=== PATIENT | female | born 1970 | race Caucasian/White ===

== ENCOUNTER 2017-09-12 12:17 | Emergency (ER) | payer SELFPAY ==
[~2017-09-12] VITALS: Ht 165.1 cm; Wt 71.2 kg
[~2017-09-12 12:17] MED LIST: ACET-819 PO; DCS100C PO; HYDR-3454 PO; IBP800T PO; TRAM50TA2 PO
--- NOTE | 2017-09-12 14:21 | ED GU-Female ---
General Chief Complaint: -Female Stated Complaint: EXCESSIVE VAG BLEEDING Nursing Triage Note: hAD PAP AND PELVIC LAST WEEK. sTARTING FRIDAY- HAS HAD INCREASED VAG BLEEDING, PASSING PEA SIZED CLOTS. Nursing Sepsis Screen: No Definite Risk Source: patient Exam Limitations: no limitations History of Present Illness Time seen by provider: 14:21 Initial Comments 47-year-old female patient presents to the emergency Department with reports of menorrhagia beginning Friday. States she is now passing "pea sized" clots. She does report a history of heavy periods, but worse on this occasion. Patient did have a pelvic/Pap smear last week. She is scheduled next week with her nurse practitioner at [facility] in [place] for follow-up results. Denies pain or fever. Previously was tested and told she was going through menopause. Did not have a period for approximately 4-6 months until Friday. Timing/Duration: other (Friday) Severity/Quality: other (Moderate to severe symptoms) Location: vaginal Activities at Onset: none Prior Genitourinary Problems: similar symptoms Sexual [place] History: less than 2 months ago, single partner Allergies and Home Medications Allergies Coded Allergies: Penicillins (Unverified Allergy, HIVES, 08/18/13) Home Medications Docusate Sodium 100 Mg Capsule, 100 MG PO BID, (Reported) Hydrocodone Bit/Acetaminophen 1 Each Tablet, 1-2 EACH PO Q6H PRN for PAIN, ( Reported) LAST DOSE AT 3:40 Constitutional: no symptoms reported Respiratory: no symptoms reported Cardiovascular: no symptoms reported Gastrointestinal: No abdominal pain, No constipation, No diarrhea, No loss of appetite, No melena, No nausea, No vomiting Genitourinary: see HPI, denies burning, discharge, denies dysuria, denies frequency, denies flank pain, denies hematuria, denies pain, other (Menorrhagia) Musculoskeletal: no symptoms reported Skin: no symptoms reported Psychiatric/Neurological: No Symptoms Reported Hematologic/Lymphatic: Denies Anemia, Denies Blood Clots, Denies Easy Bleeding , Denies Easy Bruising All Other Systemes Reviewed Negative Unless Noted: Yes (Negative excepted noted.) Past Aeulbbd-Gybahu-Kdcbfg Hx Patient Social History Alcohol Use: Denies Use Recreational Drug Use: No (SMOKE LESS THAN 1 PACK/DAY) Smoking Status: Current Everyday Smoker Type Used: Cigarettes 2nd Hand Smoke Exposure: No Recent Foreign Travel: No Contact w/Someone Who Travel: No Recent Infectious Disease Expo: No Recent Hopitalizations: No Physical Abuse: No Sexual Abuse: No Mistreated: No Fear: No Immunizations Up To Date Tetanus Booster (TDap): Less than 5yrs Seasonal Allergies Seasonal Allergies: No Surgeries History of Surgeries: Yes Surgeries: Gallbladder, Tubal Ligation Respiratory History of Respiratory Disorde: No Cardiovascular History of Cardiac Disorders: No Neurological History of Neurological Disord: No Reproductive System Hx : 3 Hx Para: 2 Hx Total # of Abortions (Spona: 1 () Hx Reproductive Disorders: Yes (History of menorrhagia) Sexually Transmitted Disease: No HIV/AIDS: No Female Reproductive Disorders: Menstrual Problems (h/o menorrhagia) [employer] History: Tubal Ligation Genitourinary History of Genitourinary Disor: No Gastrointestinal History of Gastrointestinal Di: No Musculoskeletal History of Musculoskeletal Dis: No Endocrine History of Endocrine Disorders: No Cancer History of Cancer: No Psychosocial History of Psychiatric Problem: No Suicide Risk Score: 0 Integumentary History of Skin or Integumenta: No Blood Transfusions History of Blood Disorders: No Reviewed Nursing Assessment Reviewed/Agree w Nursing PMH: Yes Family Medical History Significant Family History: No Pertinent Family Hx (denies female reproductive hx on mother side, but does not know father's side.) Physical Exam Vital Signs Vital Sign - Last 12Hours 09/12/17 13:47 Temp 98.1 Pulse 59 Resp 18 B/P (MAP) 135/72 (93) Pulse Ox 98 Capillary Refill : Less Than 3 Seconds General Appearance: WD/WN, no apparent distress HEENT: PERRL/EOMI, pharynx normal Neck: supple, normal inspection Cardiovascular: normal peripheral pulses, regular rate, rhythm, no edema, no murmur Respiratory: lungs clear, normal breath sounds, no respiratory distress, no accessory muscle use Gastrointestinal: normal bowel sounds, non tender, soft, no organomegaly Pelvic: normal external exam, normal adnexa, no cerv. motion tender, no masses , No lesions, vaginal bleeding (approximately 3-4 cc's of dark blood noted in the vagina without active bleeding.) Back: normal inspection, no CVA tenderness Extremities: no pedal edema, normal capillary refill Neurologic/Psychiatric: alert, normal mood/affect, oriented x 3 Skin: normal color, warm/dry Progress/Results/Core Measures Suspected Sepsis Recent Fever Within 48 Hours: No Infection Criteria Present: None New/Unexplained Altered Menta: No Sepsis Screen: No Definite Risk Sepsis Diagnosis: SIRS Temperature:98.1 Pulse: 59 Respiratory Rate: 18 Blood Pressure 135 /72 Mean: 93 Results/Orders Lab Results My Orders Vital Signs/I&O Capillary Refill : Less Than 3 Seconds Blood Pressure Mean: 93 Diagnostic Imaging Diagonstic Imaging: Ultrasound Plain Films/CT/US/NM/MRI: pelvis Comments Findings: The uterus measures 9.0 x 6.6 x 5.9 cm. The myometrium is normal in echogenicity without discrete mass. The endometrium is heterogeneous in echogenicity and mildly thickened measuring up to 1.4 cm. There is blood flow within the endometrium which is abnormal. The right ovary measures 3.3 x 3.3 x 2.6 cm. The left ovary measures 2.6 x 2.1 x 2.8 cm. Blood flow is seen in both ovaries by color Doppler imaging. In the right ovary there is a complex cyst with layering debris with the cyst measuring 2.0 x 2.0 cm. Anechoic follicle in the left ovary is present and less than 2 cm in size. No free pelvic fluid. Impression: 1. Abnormal heterogeneous appearance of the endometrium with debris present as well as vascularity within the endometrium. The debris may be secondary to menstruation, depending on patient's cycle. Endometrial neoplasm is thought less likely but cannot be excluded. Consider followup ultrasound in 6 weeks and/or gynecology consultation. Dictated on workstation # [id number] Reviewed: Reviewed by Me (radiology report reviewed by me) Departure Communication (Admissions) Progress Notes Patient seen and evaluated. All laboratory and diagnostic findings discussed with the patient. Plan for discharge to home with follow-up with [facility] next week as previously scheduled. All return precautions were discussed with the patient as described in the discharge instructions of this report. Patient verbalizes understanding and agrees with the treatment plan. Impression Impression: Primary Impression: Menorrhagia with irregular cycle Additional Impression: Abnormal pelvic ultrasound Disposition: HOME, SELF-CARE Condition: Improved Departure-Patient Inst. Decision time for Depature: 16:54 Referrals: [facility] (PCP) Primary Care Physician WENDY JOHNSON DENNIS G MD QUICK,STAR FLORES DO Patient Instructions: IRREGULAR VAGINAL BLEEDING Add. Discharge Instructions: All discharge instructions reviewed with patient and/or family. Voiced understanding. Tylenol extra strength [id number] as directed for abdominal cramping. Ibuprofen 800 mg by mouth every 8 hours as needed for pain or abdominal cramping. Follow-up next week with [facility] as previously scheduled for recheck and scheduling outpatient repeat ultrasound in 6 weeks. Return to the emergency department immediately for increased bleeding , fever, dizziness, shortness of air, or any other concerns. COOPER GARCIA Sep 12, 2017 14:21
[2017-09-12 14:25] LABS: BASOPHILS % (AUTO) 1 % (0-10); EOSINOPHILS # (AUTO) 0.4 10^3/uL (0.0-0.3); EOSINOPHILS % (AUTO) 5 % (0-10); HEMATOCRIT 40 % (35-52); HEMOGLOBIN 13.6 G/DL (11.5-16.0); LYMPHOCYTES # (AUTO) 3.2 X 10^3 (1.0-4.0); LYMPHOCYTES % (AUTO) 36 % (12-44); MEAN CORPUSCULAR HEMOGLOBIN 32 PG (25-34); MEAN CORPUSCULAR HGB CONC 34 G/DL (32-36); MEAN CORPUSCULAR VOLUME 94 FL (80-99); MEAN PLATELET VOLUME 9.5 FL (7.4-10.4); MONOCYTES # (AUTO) 0.6 X 10^3 (0.0-1.0); MONOCYTES % (AUTO) 6 % (0-12); NEUTROPHILS # (AUTO) 4.6 X 10^3 (1.8-7.8); NEUTROPHILS % (AUTO) 52 % (42-75); PLATELET COUNT 417 10^3/uL (130-400); RED BLOOD COUNT 4.23 10^6/uL (4.35-5.85); WHITE BLOOD COUNT 8.7 10^3/uL (4.3-11.0)
[2017-09-12 14:40] LABS: ALANINE AMINOTRANSFERASE 16 U/L (0-55); ALKALINE PHOSPHATASE 72 U/L (40-136); BILIRUBIN,TOTAL 0.5 MG/DL (0.1-1.0); BUN/CREATININE RATIO 8; CALCIUM 8.7 MG/DL (8.5-10.1); CARBON DIOXIDE 24 MMOL/L (21-32); CHLORIDE 107 MMOL/L (98-107); CREATININE SERUM 0.75 MG/DL (0.60-1.30); GFR ESTIMATED > 60; GLUCOSE 114 MG/DL (70-105); POTASSIUM 3.6 MMOL/L (3.6-5.0); SODIUM 139 MMOL/L (135-145); TOTAL PROTEIN 6.7 GM/DL (6.4-8.2)
--- NOTE | 2017-09-12 15:58 | Diagnostic Imaging Report ---
US NON OB TRANSVAGINAL [id number] Technique: Transvaginal grayscale, color Doppler and pulse duplex imaging of the pelvis was performed. Indication: Heavy bleeding Findings: The uterus measures 9.0 x 6.6 x 5.9 cm. The myometrium is normal in echogenicity without discrete mass. The endometrium is heterogeneous in echogenicity and mildly thickened measuring up to 1.4 cm. There is blood flow within the endometrium which is abnormal. The right ovary measures 3.3 x 3.3 x 2.6 cm. The left ovary measures 2.6 x 2.1 x 2.8 cm. Blood flow is seen in both ovaries by color Doppler imaging. In the right ovary there is a complex cyst with layering debris with the cyst measuring 2.0 x 2.0 cm. Anechoic follicle in the left ovary is present and less than 2 cm in size. No free pelvic fluid. Impression: 1. Abnormal heterogeneous appearance of the endometrium with debris present as well as vascularity within the endometrium. The debris may be secondary to menstruation, depending on patient's cycle. Endometrial neoplasm is thought less likely but cannot be excluded. Consider followup ultrasound in 6 weeks and/or gynecology consultation. Dictated by: Dictated on workstation # [id number]
[2017-09-12 16:56] VITALS: BP 136/72
== END 2017-09-12 16:54 | disposition home or self-care (01) ==
LOC: EDUNIT# 12:17 → ER 12:19
DX: N92.5 Other specified irregular menstruation (principal); R93.5 Abnormal findings on diagnostic imaging of other abdominal regions, including retroperitoneum; F17.210 Nicotine dependence, cigarettes, uncomplicated; Z98.51 Tubal ligation status
CPT/HCPCS: 36415; 76830; 80053; 85025; 87070; 87210; 87491; 87591; 99284

== ENCOUNTER → 2017-09-23 | Outpatient (CLI) | payer OTHER ==
--- NOTE | 2017-09-23 11:18 | Diagnostic Imaging Report ---
INDICATION: Screening. COMPARISON: 09/02/2016 back through 01/11/2013. TECHNIQUE: Screening digital mammography was performed bilaterally with a Computer Aided Detection (CAD) system. FINDINGS: There is a moderate amount of residual fibroglandular tissue bilaterally. There is no dominant mass, spiculated lesion, or malignant appearing clustered microcalcifications identified. The skin, nipples, and axillae are unremarkable. IMPRESSION: Negative. ACR BI-RADS Category 1: Negative. Result letter will be mailed to the patient. Note: At least 10% of breast cancer is not imaged by mammography. Dictated by: Dictated on workstation # [id number]
== END ==
LOC: RAD 09:33
PROVIDERS: ATTEND Nurse Practitioner Family
DX: Z12.31 Encounter for screening mammogram for malignant neoplasm of breast (principal)
CPT/HCPCS: 77067

== ENCOUNTER → 2022-03-11 | Outpatient (CLI) | payer OTHER ==
--- NOTE | 2022-03-11 15:27 | Diagnostic Imaging Report ---
PROCEDURE: MRI lumbar spine. TECHNIQUE: Multiplanar, multisequence MRI of the lumbar spine was performed without contrast. INDICATION: Back pain, scoliosis, left leg pain. COMPARISON: I have no relevant comparison. FINDINGS: There is a moderate severity of leftward convexity lumbar scoliotic curvature. [place] of the curvature is at the L3 level. Coronal view showed no appreciable lateral listhesis and the sagittal images showed no anterior or posterior listhesis. The lumbar statures themselves are normal and there was no segmentation anomaly or dysraphism. There is no paravertebral mass, hemorrhage, or fluid collection. No endplate Modic changes. No marrow edema. No acute or suspicious bony pathology. The conus appeared unremarkable. The nerves of the cauda equina revealed a normal dispersal pattern. T12-L1: Osteophyte disc material anteriorly results in no stenosis. L1-L2: There is right greater than left facet arthrosis. There is thickening of the ligamenta flava. There is disc bulge and endplate osteophytes. The findings result in no significant canal stenosis, however there is at least mild narrowing of the right neural foramen. L2-L3: There is facet arthrosis and mild thickening of the ligamenta flava. There is disc desiccation. There are endplate spurs and osteophytes directed anteriorly. The spinal canal is patent. There is no significant foraminal stenosis. L3-L4: There is thickened ligamenta flava. There is facet arthrosis. There is disc bulge and endplate osteophytes. The findings result in a moderate degree of canal stenosis. There is moderate right and mild left foraminal stenoses. L4-L5: Thickened ligamenta flava and facet arthrosis with disc bulge and endplate osteophytes result in moderate canal stenosis with [id number] right foraminal narrowing. L5-S1: There is disc desiccation, bulge, and endplate osteophytes. There is bulky facet arthrosis. The findings result in severe spinal canal stenosis. There is moderate right and severe left foraminal narrowing as well as severe left and at least moderate right lateral recess impingement. IMPRESSION: 1. Leftward convexity lumbar scoliosis, spondylosis, and facet arthrosis with multilevel canal, foraminal, and recess stenoses, most severe at the L5-S1 level. 2. No acute-appearing bony abnormality. Dictated by: Dictated on workstation # [id number]
== END ==
LOC: RAD 14:00
PROVIDERS: ATTEND Nurse Practitioner
DX: M47.27 Other spondylosis with radiculopathy, lumbosacral region (principal); M41.87 Other forms of scoliosis, lumbosacral region; M48.07 Spinal stenosis, lumbosacral region
CPT/HCPCS: 72148